=== PATIENT | male | born 1995 | race Two or more races ===

== ENCOUNTER 2021-05-31 19:27 | Emergency (ER) | payer SELFPAY ==
[~2021-05-31] VITALS: Ht 167.6 cm; Wt 68.0 kg
[2021-05-31] MEDS ORDERED: IV NORMAL SALINE 1000ML BAG 1,000 ML IV ONE (20:15)
[2021-05-31] MEDS ORDERED: KETOROLAC 30 MG/ML VIAL. IVP ONE (20:15)
[2021-05-31 20:19] LABS: BASO # 0.1 x10^3/uL (0.0-0.2); BASO % 0 % (0-3); EOS % 0 % (0-3); HEMATOCRIT 43.4 % (39.0-53.0); HEMOGLOBIN 14.9 g/dL (13.0-17.5); LYMPH # 2.4 x10^3/uL (1.0-4.8); LYMPH % 20 % (24-48); MEAN CORPUSCULAR HEMOGLOBIN 31 pg (25-35); MEAN CORPUSCULAR HGB CONC 34 g/dL (31-37); MEAN CORPUSCULAR VOLUME 90 fL (79-100); MONO # 0.6 x10^3/uL (0.0-1.1); MONO % 5 % (0-9); NEUT # 9.3 x10^3/uL (1.8-7.7); NEUT % 75 % (31-73); PLATELET COUNT 287 x10^3/uL (140-400); RED CELL DISTRIBUTION WIDTH 12.6 % (11.5-14.5); WHITE BLOOD COUNT 12.4 x10^3/uL (4.0-11.0)
--- NOTE | 2021-05-31 20:19 | PHYS DOC ---
Past Medical History Past Medical History: No Pertinent History Past Surgical History: No Surgical History Smoking Status: Never Smoker Alcohol Use: Occasionally General Adult EDM: Chief Complaint: GI PROBLEM HPI: HPI: Patient is a 26 year old male who present to ER for evaluation of left flank pain started earlier today. Symptoms started at the left flank area, radiates to his left groin area. Patient denies any nausea or vomiting. Patient denies any bloody urine. Patient denies any cough or fever. Patient injury. Patient described the pain as sharp pain Review of Systems: Review of Systems: Constitutional: Denies fever or chills. [] Eyes: Denies change in visual acuity. [] HENT: Denies nasal congestion or sore throat. [] Respiratory: Denies cough or shortness of breath. [] Cardiovascular: Denies chest pain or edema. [] GI: Positive for left flank pain, no nausea vomiting, no diarrhea : Denies dysuria. [] Musculoskeletal: Denies back pain or joint pain. [] Integument: Denies rash. [] Neurologic: Denies headache, focal weakness or sensory changes. [] Endocrine: Denies polyuria or polydipsia. [] Lymphatic: Denies swollen glands. [] Psychiatric: Denies depression or anxiety. [] Heart Score: C/O Chest Pain: N/A Risk Factors: Risk Factors: DM, Current or recent (<one month) smoker, HTN, HLP, family history of CAD, obesity. Risk Scores: Score 0 - 3: 2.5% MACE over next 6 weeks - Discharge Home Score 4 - 6: 20.3% MACE over next 6 weeks - Admit for Clinical Observation Score 7 - 10: 72.7% MACE over next 6 weeks - Early Invasive Strategies Current Medications: Current Medications Medications (Trade) Dose Ordered Sig/Kel Start Time Stop Time Status Last Admin Dose Admin Ketorolac Tromethamine (Toradol 30mg Vial) 30 mg 1X ONCE 05/31/21 20:15 05/31/21 20:16 DC Sodium Chloride 1,000 ml @ 1,000 mls/hr 1X ONCE 05/31/21 20:15 05/31/21 21:14 Allergies: Allergies: Allergies Coded Allergies Type Severity Reaction Last Updated Verified No Known Drug Allergies 05/31/21 No Physical Exam: PE: Constitutional: Well developed, well nourished, no acute distress, non-toxic appearance. [] HENT: Normocephalic, atraumatic, bilateral external ears normal, oropharynx moist, no oral exudates, nose normal. [] Eyes: PERRLA, EOMI, conjunctiva normal, no discharge. [] Neck: Normal range of motion, no tenderness, supple, no stridor. [] Cardiovascular:Heart rate regular rhythm, no murmur [] Lungs & Thorax: Bilateral breath sounds clear to auscultation [] Abdomen: Bowel sounds normal, soft, there is tenderness to palpation of the left lower quadrant, no masses, no pulsatile masses. [] Skin: Warm, dry, no erythema, no rash. [] Back: No tenderness, there is left CVA tenderness to palpation Extremities: No tenderness, no cyanosis, no clubbing, ROM intact, no edema. [] Neurologic: Alert and oriented X 3, normal motor function, normal sensory function, no focal deficits noted. [] Psychologic: Affect normal, judgement normal, mood normal. [] Current Patient Data: Labs: Laboratory Tests Test 05/31/21 20:10 White Blood Count 12.4 x10^3/uL Red Blood Count 4.80 x10^6/uL Hemoglobin 14.9 g/dL Hematocrit 43.4 % Mean Corpuscular Volume 90 fL Mean Corpuscular Hemoglobin 31 pg Mean Corpuscular Hemoglobin Concent 34 g/dL Red Cell Distribution Width 12.6 % Platelet Count 287 x10^3/uL Neutrophils (%) (Auto) 75 % Lymphocytes (%) (Auto) 20 % Monocytes (%) (Auto) 5 % Eosinophils (%) (Auto) 0 % Basophils (%) (Auto) 0 % Neutrophils # (Auto) 9.3 x10^3/uL Lymphocytes # (Auto) 2.4 x10^3/uL Monocytes # (Auto) 0.6 x10^3/uL Eosinophils # (Auto) 0.0 x10^3/uL Basophils # (Auto) 0.1 x10^3/uL Sodium Level 138 mmol/L Potassium Level 3.9 mmol/L Chloride Level 101 mmol/L Carbon Dioxide Level 27 mmol/L Anion Gap 10 Blood Urea Nitrogen 22 mg/dL Creatinine 1.0 mg/dL Estimated GFR (Cockcroft-Gault) 90.3 BUN/Creatinine Ratio 22 Glucose Level 105 mg/dL Calcium Level 9.5 mg/dL Total Bilirubin 0.7 mg/dL Aspartate Amino Transf (AST/SGOT) 24 U/L Alanine Aminotransferase (ALT/SGPT) 35 U/L Alkaline Phosphatase 98 U/L Total Protein 7.7 g/dL Albumin 4.8 g/dL Albumin/Globulin Ratio 1.7 Lipase 58 U/L Current Medications Medications (Trade) Dose Ordered Sig/Kel Route PRN Reason Start Time Stop Time Status Last Admin Dose Admin Ketorolac Tromethamine (Toradol 30mg Vial) 30 mg 1X ONCE IVP 05/31/21 20:15 05/31/21 20:16 DC 05/31/21 20:22 Sodium Chloride 1,000 ml @ 1,000 mls/hr 1X ONCE IV 05/31/21 20:15 05/31/21 21:14 05/31/21 20:23 Vital Signs: Vital Signs Date Time Temp Pulse Resp B/P (MAP) Pulse Ox O2 Delivery O2 Flow Rate FiO2 05/31/21 19:50 97.4 65 20 141/82 (101) 99 Room Air 97.4 EKG: EKG: [] Radiology/Procedures: Radiology/Procedures: [][facility] [address] [place] [address] IMAGING REPORT Signed PATIENT: ZACHARY CURRIE AACCOUNT: [id number] : 1995 LOCATION: ER AGE: 26 SEX: M EXAM STATUS: REG ER ORD. PHYSICIAN: MATHEUS DELONG DO REASON: left side flank pain PROCEDURE: CT ABDOMEN PELVIS WO CONTRAST PQRS Compliance Statement: One or more of the following individualized dose reduction techniques were utilized for this examination: 1. Automated exposure control 2. Adjustment of the mA and/or kV according to patient size 3. Use of iterative reconstruction technique CT ABDOMEN+PELVIS WO Clinical Indication: Reason: left side flank pain / Spl. Instructions: / History: Comparison: None. Technique: Helical CT imaging of the abdomen and pelvis is performed without IV or oral contrast. Findings: Lung Bases Are Clear. Cardiac Size is Normal. Gallbladder Is Contracted. The Liver, Spleen, Pancreas, Adrenal Glands, And Abdominal Aorta Are Normal. There Is No Renal Calculus. There Is No Perinephric stranding Or Hydronephrosis. The stomach is unremarkable. There is no dilated small bowel. The appendix is normal. There is no colon wall thickening. There is no abdominal adenopathy or free fluid. The urinary bladder is normal. No pelvic free fluid. No acute bone abnormality. IMPRESSION: No acute abdominal or pelvic abnormality. No obstructive uropathy. Electronically signed by: Kwesi Davis MD (05/31/2021 8:41 PM) [facility] DICTATED and SIGNED BY: KWESI DAVIS MD DATE: 05/31/212033 Course & Med Decision Making: Course & Med Decision Making Pertinent Labs and Imaging studies reviewed. (See chart for details) Patient is a 26-year-old male who present to ER for evaluation of left-sided a bdominal pain, lab work was reassuring, CT scan abdomen pelvis did not show any acute problem. Patient will be discharged home [place] Disclaimer: [place] Disclaimer: This electronic medical record was generated, in whole or in part, using a voice recognition dictation system. Departure Departure Impression: Primary Impression: Left flank pain Disposition: 01 HOME / SELF CARE / HOMELESS Condition: IMPROVED Patient Instructions: Flank Pain Additional Instructions: Please follow up with [facility] this week. [address], [address] [place] [address] Phone number: [phone] MATHEUS DELONG DO May 31, 2021 20:19
[2021-05-31 20:29] LABS: CALCIUM 9.5 mg/dL (8.5-10.1); GFR 90.3; POTASSIUM 3.9 mmol/L (3.5-5.1)
[2021-05-31 20:34] LABS: ALBUMIN 4.8 g/dL (3.4-5.0); ALBUMIN/GLOBULIN RATIO 1.7 (1.0-1.7); TOTAL BILIRUBIN 0.7 mg/dL (0.2-1.0); TOTAL PROTEIN 7.7 g/dL (6.4-8.2)
--- NOTE | 2021-05-31 20:43 | RAD ---
PQRS Compliance Statement: One or more of the following individualized dose reduction techniques were utilized for this examinat ion: 1. Automated exposure control 2. Adjustment of the mA and/or kV according to patient size 3. Use of iterative reconstruction technique CT ABDOMEN+PELVIS WO Clinical Indication: Reason: left side flank pain / Spl. Instructions: / History: Comparison: None. Technique: Helical CT imaging of the abdomen and pelvis is performed without IV or oral contrast. Findings: Lung Bases Are Clear. Cardiac Size is Normal. Gallbladder Is Contracted. The Liver, Spleen, Pancreas, Adrenal Glands, And Abdominal Aorta Are Lydia l. There Is No Renal Calculus. There Is No Perinephric stranding Or Hydronephrosis. The stomach is unremarkable. There is no dilated small bowel. The appendix is normal. There is no col on wall thickening. There is no abdominal adenopathy or free fluid. The urinary bladder is normal. No pelvic free fluid. No acute bone abnormality. IMPRESSION: No acute abdominal or pelvic abnormality. No obstructive uropathy. Electronically signed by: Kwesi Davis MD (05/31/2021 8:41 PM) [facility]
[2021-05-31 21:06] LABS: BACTERIA,URINE 0 /HPF (0-FEW); RBC,URINE 0 /HPF (0-2); WBC,URINE 0 /HPF (0-4)
[2021-05-31 22:29] VITALS: BP 110/65
== END 2021-05-31 22:37 | disposition home or self-care (01) ==
LOC: ER 19:27
DX: R10.32 Left lower quadrant pain (principal)
CPT/HCPCS: 36415; 74176; 80053; 81001; 83690; 85025; 96361; 96374; 99285; J1885; J7030